=== PATIENT | female | born 1990 | race Caucasian/White ===

== ENCOUNTER 2017-01-16 21:43 | Emergency (ER) | payer OTHER ==
[~2017-01-16 21:43] MED LIST: ALDOMET 250MG250 MG PO; AMOX-CLAV 875-1 EACH PO; AMOXIL500 MG PO; BACTRIM DS TAB1 EACH PO; BACTROBAN OINT.15 GM TOP; DEPO-PROVE150 MG/1 M IM; DIFLUCAN150 MG PO; DOCUSATE SODIU100 MG PO; FLEXERIL10 MG PO; HYDROMORPHONE HC2 MG PO; IMITREX50 MG PO; LABETALOL HCL100 M1 PO; METHYLDOPA250 MG PO; MOTRIN600 MG PO; TESSALON PERLE100 MG PO; ULTRAM(MONOGRAP50 MG PO; ZOFRAN ODT4 MG PO; ZOFRAN4 M1 SL
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
[2017-01-16] MEDS ORDERED: MOBIC15 M1 PO (22:19)
[2017-01-16] MEDS ORDERED: LABETALOL HCL100 M1 PO (22:19)
[2017-01-16 22:30] VITALS: BP 172/100
[2017-01-17] MEDS ORDERED: MOBIC15 M1 PO (09:14)
[2017-01-17] MEDS ORDERED: LABETALOL HCL100 M1 PO (09:14)
== END 2017-01-16 22:33 ==
LOC: ERH 21:43
DX: T22.212A Burn of second degree of left forearm, initial encounter (principal); I10 Essential (primary) hypertension; X10.1XXA Contact with hot food, initial encounter; Y92.9 Unspecified place or not applicable; Y93.9 Activity, unspecified